=== PATIENT | male | born 1985 | race Caucasian/White ===

== ENCOUNTER 2019-01-20 16:36 | Emergency (ER) | payer BC ==
[~2019-01-20] VITALS: Ht 182.9 cm; Wt 84.1 kg
[~2019-01-20 16:36] MED LIST: NO HOME MEDICATIONS; VICODIN 5/5001 UDTAB PO
[2019-01-20 17:31] VITALS: BP 124/73; TEMP 97.6
[2019-01-20 19:19] VITALS: PULSE 67
== END 2019-01-20 19:19 | disposition home or self-care (01) ==
LOC: COL.ER 16:36
DX: S81.012A Laceration without foreign body, left knee, initial encounter (principal); Z23 Encounter for immunization; V89.9XXA Person injured in unspecified vehicle accident, initial encounter